=== PATIENT | male | born 1990 | race Hispanic/Latino ===

== ENCOUNTER 2019-04-20 12:12 | Inpatient (IN) | payer OTHER ==
[2019-04-20] MEDS ORDERED: ONDANSETRON 4 MG/2 ML VIAL ONE ×4 (12:20→14:38)
[2019-04-20] MEDS ORDERED: HYDROMORPHONE HCL 1 MG/ML INJ ONE (12:20)
[2019-04-20 12:30] LABS: Absolute Lymphocytes (CBC) 2.6 K/uL (0.7-4.9); Basophils % 0.5 % (0-1.3); Hematocrit 46.5 % (39.6-49.0); Lymphocytes % 26.5 % (15.3-44.8); MPV 9.1 fL (7.6-11.3); RBC Red Blood Cell Count 5.23 M/uL (4.33-5.43)
[2019-04-20] MEDS ORDERED: BUPIVACAINE 0.5% PF 10 ML VIAL ONE (12:33)
--- NOTE | 2019-04-20 12:35 | RAD REPORT ---
EXAM DESCRIPTION: RAD - Hand Left 2 View - 04/20/2019 12:26 pm CLINICAL HISTORY: Pain;Deformity COMPARISON: No comparisons FINDINGS: Examination is limited by positioning of the fingers which are in a flexed position. Soft tissue injuries are seen involving the distal aspect of the second and third fingers. No definitive f racture or foreign body seen within the limitations detailed.
--- NOTE | 2019-04-20 12:36 | RAD REPORT ---
EXAM DESCRIPTION: RAD - Chest Single View - 04/20/2019 12:28 pm CLINICAL HISTORY: pre op Chest pain. COMPARISON: No comparisons FINDINGS: Portable technique limits examination quality. The lungs are grossly clear. The heart is normal in size. No displaced fractures.Small cervical hardw are plate. IMPRESSION: No acute intrathoracic process suspected.
[2019-04-20] MEDS ORDERED: CEFAZOLIN/SWI 1gm 1 GM/10 ML SYR ONE (12:44)
[2019-04-20] MEDS ORDERED: TETANUS & DIPHTHERIA TOX,ADULT 0.5 ML VIAL ONE (12:44)
--- NOTE | 2019-04-20 13:01 | ER ---
Nurse's Notes [facility] Name: Tommy Chanel Age: 29 yrs Sex: Male : 1990 Arrival Date: 04/20/2019 Time: 12:16 Bed 3 Private MD: Diagnosis: Crushing injury of left hand;Laceration without foreign body of finger with damage to nail Presentation: 04/20 12:10 Presenting complaint: Patient states: At work, had work gloves on, putting a plate onto jl7 a roller, the plate caught the glove and the roller pulled the plate and gloved hand causing a crush injury to the second and third digits of the left hand. Transition of care: patient was not received from another setting of care. Onset of symptoms was April 20, 2019. Risk Assessment: Do you want to hurt yourself or someone else? Patient reports no desire to harm self or others. Initial Sepsis Screen: Does the patient meet any 2 criteria? No. Patient's initial sepsis screen is negative. Does the patient have a suspected source of infection? No. Patient's initial sepsis screen is negative. Care prior to arrival: None. 12:10 Method Of Arrival: Ambulatory jl7 12:10 Acuity: GEORGINA 2 jl7 13:02 Mechanism of Injury: Crush injury from industrial equipment, that had unknown weight. jl7 Extrication was not required. Patient was trapped for unknown amount of time. Trauma event details: Injury occurred in the [facility], Injury occurred: in an industrial place of business Injury occurred: April 20, 2019 Injury occurred at: 11:47. Triage Assessment: 12:10 General: Appears in no apparent distress. uncomfortable, Behavior is cooperative, jl7 anxious. Pain: Complains of pain in left middle finger and left index finger Pain currently is 10 out of 10 on a pain scale. Neuro: Level of Consciousness is awake, alert, obeys commands, Oriented to person, place, time, situation. Cardiovascular: Patient's skin is warm and dry. Respiratory: Airway is patent Respiratory effort is even, unlabored, Respiratory pattern is symmetrical, tachypnea. Derm: Skin is pink, warm \T\ dry. Trauma Activation: Alert Physician: ED Physician; Name: ELLIS Carrasco; Notified At: 12:10; Arrived At: 12:10 Physician: General Surgeon; Name: ; Notified At: 12:10; Arrived At: Physician: Radiology; Name: Misbah; Notified At: 12:10; Arrived At: 12:11 Physician: Respiratory; Name: ; Notified At: 12:10; Arrived At: Physician: Lab; Name: ; Notified At: 12:10; Arrived At: Historical: - Allergies: 12:10 No Known Allergies; jl7 - Home Meds: 12:10 None [Active]; jl7 - PMHx: 12:10 None; jl7 - PSHx: 12:10 metal rods and plate in spine and right leg; jl7 - Immunization history:: Adult Immunizations up to date. - Coronavirus screen:: The patient has NOT traveled to [place] in the past 14 days. Proceed with normal triage process as indicated. - Immunization history: Last tetanus immunization: < 5 years ago. - Social history:: Smoking status: Patient reports the use of cigarette tobacco products, smokes one-half pack cigarettes per day. - Ebola Screening: : No symptoms or risks identified at this time. Screenin:15 Abuse screen: Denies threats or abuse. Denies injuries from another. Tuberculosis jl7 screening: No symptoms or risk factors identified. 13:08 Nutritional screening: No deficits noted. Fall Risk None identified. jl7 Primary Survey: 12:10 NO uncontrolled hemorrhage observed. A: The patient is alert. Airway: patent. jl7 Breathing/Chest: Respiratory pattern: regular, Respiratory effort: spontaneous, unlabored, Chest inspection: symmetrical rise and fall of the chest. Circulation: Pulses: palpable right radial artery and left radial artery. Skin color: pink, Skin temperature: warm. Disability Alert. Exposure/Environment: All clothing and personal items were removed. Forensic evidence collection is not deemed to be indicated at this time. Items placed in patient belonging bag. 12:30 Reassessment Airway Airway Patent Breathing/Chest Respiratory pattern Regular jl7 Respiratory effort Spontaneous Unlabored Chest inspection Symmetrical Circulation Color Brandon Temperature Warm Disability Alert. Assessment: 12:10 General: Appears in no apparent distress. uncomfortable, Behavior is cooperative, jl7 anxious, See triage assessment. 13:00 Reassessment: Pts belongings including wallet, phone, clothes and boots sent with pt's jl7 [id number], Jose. 13:03 Reassessment: Pt to surgery via stretcher, family with pt. jl7 Vital Signs: 12:15 BP 137 / 107; Pulse 87; Resp 21; Temp 98.6; Pulse Ox 97% ; Weight 106.59 kg; Pain 10/10;jl7 12:45 BP 144 / 83; Pulse 82; Resp 17 S; Pulse Ox 96% on R/A; jl7 Jono Coma Score: 12:15 Eye Response: spontaneous(4). Verbal Response: oriented(5). Motor Response: obeys jl7 commands(6). Total: 15. 12:45 Eye Response: spontaneous(4). Verbal Response: oriented(5). Motor Response: obeys jl7 commands(6). Total: 15. Trauma Score (Adult): 12:15 Eye Response: spontaneous(1); Verbal Response: oriented(1); Motor Response: obeys jl7 commands(2); Systolic BP: > 89 mm Hg(4); Respiratory Rate: 10 to 29 per min(4); [place] Score: 15; Trauma Score: 12 ED Course: 12:10 Inserted saline lock: 20 gauge in right hand, using aseptic technique. ,using aseptic jl7 technique. KETTY Ronquillo Blood collected. 12:15 Oxygen administration via nasal cannula \T\ 2L/min. Thermoregulation: warm blanket given jl7 to patient. 12:15 Patient has correct armband on for positive identification. Placed in gown. Bed in low jl7 position. Call light in reach. 12:16 Patient arrived in ED. hb 12:16 Parish Hines PA is PHCP. jr8 12:16 Len Vargas MD is Attending Physician. jr8 12:26 X-ray completed. Portable x-ray completed in exam room. Patient tolerated procedure mh1 well. 12:32 XRAY Chest (1 view) In Process Unspecified. EDMS 12:33 Hand Left 2 View In Process Unspecified. EDMS 12:36 Delia Messer RN is Primary Nurse. jl7 12:38 Triage completed. jl7 12:40 Lab(s) recollected, by me, sent to lab. em1 12:45 Arm band placed on right wrist. jl7 12:59 Ramon Dey MD is Hospitalizing Provider. jr8 13:08 No provider procedures requiring assistance completed. Patient admitted, IV remains in jl7 place. intact, No redness/swelling at site. Administered Medications: 12:20 Drug: Dilaudid 1 mg Route: IVP; Site: right hand; jl7 12:30 Follow up: Response: Pain is unchanged, physician notified jl7 12:34 Drug: Zofran 4 mg Route: IVP; Site: right hand; jl7 12:40 Follow up: Response: No adverse reaction jl7 12:40 Drug: Marcaine (0.5 %) 1 application {Note: administered by ELLIS Carrasco.} Volume: jl7 10 ml; Route: Infiltration; 13:13 Follow up: Response: No adverse reaction jl7 12:45 Drug: Ancef 1 grams Route: IVPB; Site: right hand; jl7 12:48 Follow up: Response: No adverse reaction; IV Status: Completed infusion jl7 13:10 Not Given (pt tetanus is up to date): Tetanus-Diphtheria Toxoid Adult 0.5 ml IM once jl7 Intake: 13:00 PO: 0ml; IV: 0ml; Tubes: 0ml (); Total: 0ml. jl7 Output: 13:00 Urine: 0ml; Gastric: 0ml; Stool: 0; EBL: 0ml; Drainage: 0ml; Other: 0; Total: 0ml. jl7 Outcome: 13:00 Decision to Hospitalize by Provider. jr8 13:08 Admitted to OR accompanied by nurse, family with patient, via stretcher, with chart. jl7 13:08 Condition: stable 13:08 Patient's length of stay was not longer than 2 hours. 13:15 Patient left the ED. jl7 Signatures: Dispatcher [employer] EDMS Amber Cronin 1 Wesley Joel em1 Parish Hines PA PA jr8 Nikki Krause, RN RN Delia Faria RN RN jl7 Corrections: (The following items were deleted from the chart) 13:12 12:36 Dilaudid 1 mg IVP in right hand jl7 jl7 13:12 12:40 Response: Pain is unchanged, physician notified jl7 jl7
--- NOTE | 2019-04-20 13:02 | EDPHYS ---
Physician Documentation [facility] Name: Tommy Chanel Age: 29 yrs Sex: Male : 1990 Arrival Date: 04/20/2019 Time: 12:16 Bed 3 Private MD: ED Physician Len Vargas HPI: 04/20 12:44 This 29 yrs old Male presents to ER via Ambulatory with complaints of crush jr8 injury. 12:44 The patient or guardian reports decreased range of motion, injury, a laceration, jr8 irregular, complex, pain, swelling, tenderness. The complaints affect the left hand diffusely. Context: The problem was sustained at work, resulted from a crush injury, by industrial equipment. Onset: The symptoms/episode began/occurred acutely, today. Modifying factors: The symptoms are alleviated by nothing, the symptoms are aggravated by movement. Associated signs and symptoms: Pertinent positives: decreased sensation distally, numbness distally, tingling distally. Severity of symptoms: At their worst the symptoms were severe. The patient has not experienced similar symptoms in the past. The patient has not recently seen a physician. Stated that he got his hand caught in a industrial roller causing it to roll his hand through his wrist into machine . Historical: - Allergies: 12:10 No Known Allergies; jl7 - Home Meds: 12:10 None [Active]; jl7 - PMHx: 12:10 None; jl7 - PSHx: 12:10 metal rods and plate in spine and right leg; jl7 - Immunization history:: Adult Immunizations up to date. - Coronavirus screen:: The patient has NOT traveled to [place] in the past 14 days. Proceed with normal triage process as indicated. - Immunization history: Last tetanus immunization: < 5 years ago. - Social history:: Smoking status: Patient reports the use of cigarette tobacco products, smokes one-half pack cigarettes per day. - Ebola Screening: : No symptoms or risks identified at this time. ROS: 12:44 Eyes: Negative for injury, pain, redness, and discharge, ENT: Negative for injury, jr8 pain, and discharge, Neck: Negative for injury, pain, and swelling, Cardiovascular: Negative for chest pain, palpitations, and edema, Respiratory: Negative for shortness of breath, cough, wheezing, and pleuritic chest pain, Abdomen/GI: Negative for abdominal pain, nausea, vomiting, diarrhea, and constipation, Back: Negative for injury and pain, Neuro: Negative for headache, weakness, numbness, tingling, and seizure. 12:44 MS/extremity: Positive for injury or acute deformity, decreased range of motion, laceration, pain, paresthesias, swelling, tenderness, tingling, of the left hand. Exam: 12:44 Eyes: Pupils equal round and reactive to light, extra-ocular motions intact. Lids and jr8 lashes normal. Conjunctiva and sclera are non-icteric and not injected. Cornea within normal limits. Periorbital areas with no swelling, redness, or edema. ENT: Nares patent. No nasal discharge, no septal abnormalities noted. Tympanic membranes are normal and external auditory canals are clear. Oropharynx with no redness, swelling, or masses, exudates, or evidence of obstruction, uvula midline. Mucous membranes moist. Neck: Trachea midline, no thyromegaly or masses palpated, and no cervical lymphadenopathy. Supple, full range of motion without nuchal rigidity, or vertebral point tenderness. No Meningismus. Cardiovascular: Regular rate and rhythm with a normal S1 and S2. No gallops, murmurs, or rubs. Normal PMI, no JVD. No pulse deficits. Respiratory: Lungs have equal breath sounds bilaterally, clear to auscultation and percussion. No rales, rhonchi or wheezes noted. No increased work of breathing, no retractions or nasal flaring. Abdomen/GI: Soft, non-tender, with normal bowel sounds. No distension or tympany. No guarding or rebound. No evidence of tenderness throughout. Back: No spinal tenderness. No costovertebral tenderness. Full range of motion. Skin: Warm, dry with normal turgor. Normal color with no rashes, no lesions, and no evidence of cellulitis. Neuro: Awake and alert, GCS 15, oriented to person, place, time, and situation. Cranial nerves II-XII grossly intact. Motor strength 5/5 in all extremities. Sensory grossly intact. Cerebellar exam normal. Normal gait. 12:44 Musculoskeletal/extremity: Extremities: grossly normal except: noted in the left hand: Patient has pain with irregular laceration and extensive soft tissue injury to 2nd digit extending from distal portion to medial phalanx. Patient also has moderate pain with swelling and subungual hematoma formation of the distal third digit. Very limited ROM to third digit. Unable to move 2nd digit. Normal ROM to thumb. Moderate ROM to 4th and 5th digits. Marked decrease in sensation to 2nd and 3rd digits. Normal sensation to 1st and 5th digits. Decreased sensation to distal 4th digit. Swelling of 2nd and 3rd digits present, Pulses: noted to be 2+ in the right radial artery and left radial artery, Perfusion: the extremity is cool, pale, noted to have sluggish capillary refill, distal 2nd-4th digits , Compartment Syndrome exam of affected extremity: the left hand distal second-fourth digits severe pain, numbness, tingling, sensation decreased, pale extremity, Remainder of extremities unaffected and within normal limits . Vital Signs: 12:15 BP 137 / 107; Pulse 87; Resp 21; Temp 98.6; Pulse Ox 97% ; Weight 106.59 kg; Pain 10/10;jl7 12:45 BP 144 / 83; Pulse 82; Resp 17 S; Pulse Ox 96% on R/A; jl7 Jono Coma Score: 12:15 Eye Response: spontaneous(4). Verbal Response: oriented(5). Motor Response: obeys jl7 commands(6). Total: 15. 12:45 Eye Response: spontaneous(4). Verbal Response: oriented(5). Motor Response: obeys jl7 commands(6). Total: 15. Trauma Score (Adult): 12:15 Eye Response: spontaneous(1); Verbal Response: oriented(1); Motor Response: obeys jl7 commands(2); Systolic BP: > 89 mm Hg(4); Respiratory Rate: 10 to 29 per min(4); [place] Score: 15; Trauma Score: 12 Procedures: 12:37 Nerve block: (digital) of dorsal aspect of proximal phalanx of left index finger jr8 Medication: Marcaine 0.5%, Amount: 4 mls were injected, Effect: the patient's symptoms are improved, moderately, Set up for procedure. Performed by Parish CORRAL Patient tolerated well. MDM: 12:16 Patient medically screened. jr8 12:43 Data reviewed: vital signs, nurses notes, lab test result(s), radiologic studies, plain jr8 films. Data interpreted: Pulse oximetry: on room air is 100 %. Interpretation: normal. Counseling: I had a detailed discussion with the patient and/or guardian regarding: the historical points, exam findings, and any diagnostic results supporting the discharge/admit diagnosis, lab results, radiology results, the need for further work-up and treatment in the hospital. ED course: Dr. Law consulted and will take patient to surgery immediately . 04/20 12:17 Order name: Basic Metabolic Panel; Complete Time: 13:15 jr8 04/20 12:17 Order name: CBC with Diff; Complete Time: 13:00 jr8 04/20 12:17 Order name: XRAY Hand LEFT 3 View jr8 04/20 12:21 Order name: XRAY Chest (1 view) jr8 04/20 12:33 Order name: Hand Left 2 View EDMS 04/20 12:17 Order name: Labs collected and sent; Complete Time: 12:18 jr8 Administered Medications: 12:20 Drug: Dilaudid 1 mg Route: IVP; Site: right hand; jl7 12:30 Follow up: Response: Pain is unchanged, physician notified jl7 12:34 Drug: Zofran 4 mg Route: IVP; Site: right hand; jl7 12:40 Follow up: Response: No adverse reaction jl7 12:40 Drug: Marcaine (0.5 %) 1 application {Note: administered by PA. Danilo} Volume: jl7 10 ml; Route: Infiltration; 13:13 Follow up: Response: No adverse reaction jl7 12:45 Drug: Ancef 1 grams Route: IVPB; Site: right hand; jl7 12:48 Follow up: Response: No adverse reaction; IV Status: Completed infusion jl7 13:10 Not Given (pt tetanus is up to date): Tetanus-Diphtheria Toxoid Adult 0.5 ml IM once jl7 Disposition: 14:18 Co-signature as Attending Physician, Len Vargas MD I agree with the assessment and kdr plan of care. Disposition: 04/20/19 13:00 Hospitalization ordered by Ramon Dey for Inpatient Admission. Preliminary diagnosis are Crushing injury of left hand, Laceration without foreign body of finger with damage to nail. - Bed requested for Telemetry/MedSurg (Inpatient). - Status is Inpatient Admission. jl7 - Condition is Fair. - Problem is new. - Symptoms have improved. Signatures: Dispatcher [employer] EDMS Len Vargas MD MD kdr Parish Hines PA PA jr8 Delia Messer RN RN jl7 Corrections: (The following items were deleted from the chart) 13:15 13:00 Hospitalization Ordered by Ramon Dey MD for Inpatient Admission. Preliminary jl7 diagnosis is Crushing injury of left hand; Laceration without foreign body of finger with damage to nail. Bed requested for Telemetry/MedSurg (Inpatient). Status is Inpatient Admission. Condition is Fair. Problem is new. Symptoms have improved. jr8
[2019-04-20 13:05] LABS: BUN Blood Urea Nitrogen 15 mg/dL (7-18); Bicarbonate 23 mmol/L (21-32); Glucose Level 98 mg/dL (74-106); Potassium 4.2 mmol/L (3.5-5.1); Sodium Level 137 mmol/L (136-145)
[2019-04-20] MEDS ORDERED: Ringers Lactate 1,000 ML IV ONE (13:13)
[2019-04-20] MEDS ORDERED: MEPERIDINE HCL 25 MG/ML SYR ONE (13:19)
[2019-04-20] MEDS ORDERED: propofoL 200 MG/20 ML VIAL IV ONE ×2 (13:30→14:22)
[2019-04-20] MEDS ORDERED: FENTANYL CITR 100 MCG/2 ML ONE ×3 (13:31→14:39)
[2019-04-20] MEDS ORDERED: LIDOCAINE 1% MPF 2 ML AMPULE ONE (13:35)
--- NOTE | 2019-04-20 13:45 | P.HP ---
Certification for Inpatient Patient admitted to: Observation With expected LOS: <2 Midnights Patient will require the following post-hospital care: None Practitioner: I am a practitioner with admitting privileges, knowledge of patient current condition, hospital course, and medical plan of care. Services: Services provided to patient in accordance with Admission requirements found in Title 42 Section 412.3 of the Code of Federal Regulations Patient History Date of Service: 04/20/19 Reason for admission: Crush Injury to Hand History of Present Illness: 29 yrs old Male presents with complaints of crush injury left hand . He has decreased range of motion, injury, a laceration, irregular, complex, pain , swelling, tenderness. The complaints affect the left hand was sustained at work, resulted from a crush injury by industrial equipment.Stated that he got his hand caught in a industrial roller causing it to roll his hand through his wrist into machine today . He complaints of decreased sensation distally, numbness distally, tingling distally. Allergies No Known Allergies Allergy (Verified 04/20/19 15:01) - Past Medical/Surgical History Past Medical History: Reviewed- Non-Contributory Past Surgical History: Reviewed- Non-Contributory - Family History Family History: Reviewed- Non-Contributory Review of Systems 10-point ROS is otherwise unremarkable Physical Examination - Vital Signs Temperature: 97.6 F Blood Pressure: 93/63 Pulse: 86 Respirations: 18 - Physical Exam General: Alert, In no apparent distress HEENT: Atraumatic, Normocephalic Neck: Supple Respiratory: Clear to auscultation bilaterally, Normal air movement Cardiovascular: No edema, Regular rate/rhythm Capillary refill: <2 Seconds Gastrointestinal: Soft and benign, W/out hepatosplenomegaly Musculoskeletal: Other (Left Hand Dressing intact , moves the fingers ) Integumentary: No rashes, No breakdown Neurological: Normal speech, Normal strength at 5/5 x4 extr Lymphatics: No axilla or inguinal lymphadenopathy External genitalia: Deferred Rectal: Deferred - Studies Laboratory Data (last 24 hrs) 04/20/19 12:40: Sodium 137, Potassium 4.2, BUN 15, Creatinine 0.94, Glucose 98 04/20/19 12:10: WBC 10.0, Hgb 15.4, Hct 46.5, Plt Count 316 Assessment and Plan - Problems (Diagnosis) (1) Crush injury of hand Current Visit: Yes Status: Acute Plan: Crush Inhury to hand Status post irrigation Plan Pain control Appreciate help from hand surgeon monitor closely Antibiotics GI/DVT prophylaxis Discharge Plan: Home Plan to discharge in: 48 Hours - Advance Directives Does patient have a Living Will: No Does patient have a Durable POA for Healthcare: No Time Spent Managing Pts Care (In Minutes): 45
[2019-04-20] MEDS ORDERED: MIDAZOLAM HCL 2 MG/2 ML INJ ONE (13:52)
[2019-04-20] MEDS ORDERED: dexAMETHasone 10 MG/ML VIAL ONE ×2 (13:52→14:37)
[2019-04-20] MEDS ORDERED: ROPLVACAINE HCL 20 ML ONE (13:52)
[2019-04-20] MEDS ORDERED: KETOROLAC 30 MG/ML INJ ONE (14:37)
[2019-04-20] MEDS: MEPERIDINE HCL 25 MG/ML SYR ONE ×2 (15:00→15:15)
[2019-04-20] MEDS ORDERED: MEPERIDINE HCL 50 MG/ML IM PRN (15:25)
[2019-04-20] MEDS: SMZ./TMP. 800/160 MG TABLET PO SCH ×2 (17:54→20:28)
[2019-04-20 18:29] VITALS: BMI 35.4
[2019-04-20] MEDS: CODEINE 30MG/APAP 300MG TAB PO PRN (21:06)
[2019-04-20] MEDS: MEPERIDINE HCL 50 MG/ML IV PRN (23:34)
--- NOTE | 2019-04-20 23:42 | OP ---
Surgeon: Jeremiah Law MD Preoperative Diagnosis: Crush wound to the left index and middle fingers ____. Postoperative Diagnosis: Crush wound to the left index and middle fingers . Procedure Performed: Debridement of skin and subcutaneous tissue, removal of foreign body, simple closure 2 cm. Anesthesia: General. Procedure In Detail: After satisfactory induction of general anesthesia, left hand was prepped with Betadine scrub, Betadine paint, dry sterile drapes applied in usual manner. Hand was placed on the [place] table. The bleeding from the wounds was excellent. The wound edges were debrided with tenotomy scissors and forceps. Patient had burst injury to the volar aspect of the middle finger at the DIP joint approximately 1.5 x 0.5 cm. The skin edges were debrided as needed and left open. The index finger had more severe injury. The nail plate had been removed by the trauma. The nail plate was removed down the middle finger using a periosteal elevator. The burst injury of the index finger was in the midline extending from the tip to the proximal level of the DIP joint. This was scrubbed with Betadine scrub brush and then the wounds were jet lavaged, irrigated with 2 L of dilute Betadine solution. Electrocautery was used on the bleeders. The vascular area was excellent, there was no evidence of compartment syndrome. Both fingers were soft, thenar and hypothenar areas were soft, palm was soft, forearm as well and the digits, and had excellent bleeding. Note, reasonably he has a significant crush injury other than the burst injury. At that time, the dressings was applied consisted of Xeroform, 2-inch Jose, and Kerlix. The patient tolerated the procedure well and returned to the Recovery. YE/MISTY Voice ID: [id number] Report ID: [id number]
[2019-04-21] MEDS: MEPERIDINE HCL 50 MG/ML IV PRN (05:34)
[2019-04-21] MEDS: CODEINE 30MG/APAP 300MG TAB PO PRN (08:12)
[2019-04-21] MEDS: SMZ./TMP. 800/160 MG TABLET PO SCH (08:13)
[2019-04-21] MEDS ORDERED: KETOROLAC 30 MG/ML INJ IM ONE (09:36)
--- NOTE | 2019-04-21 09:55 | P.DS ---
Admission Date: 04/20/19 Discharge Date: 04/21/19 Disposition: ROUTINE DISCHARGE Discharge Condition: GOOD Reason for Admission: Crush Injury to Hand - Problems (1) Crush injury of hand Status: Acute Brief History of Present Illness: 29 yrs old Male presents with complaints of crush injury left hand . He has decreased range of motion, injury, a laceration, irregular, complex, pain , swelling, tenderness. The complaints affect the left hand was sustained at work, resulted from a crush injury by industrial equipment.Stated that he got his hand caught in a industrial roller causing it to roll his hand through his wrist into machine today . He complaints of decreased sensation distally, numbness distally, tingling distally. Hospital Course: He was admitted and pain was controlled well. Hand surgeon did irrigation and cleaning. Hand surgery recommended outpatient follow up she has been discharged home today in a stable condition with advice to follow up with PCP in 1 week and also with hand surgery on Wednesday Vital Signs/Physical Exam: Temp Pulse Resp BP Pulse Ox 97.8 F 58 20 117/54 L 96 04/21/19 08:00 04/21/19 08:00 04/21/19 08:12 04/21/19 08:00 04/21/19 08:12 General: Alert, In no apparent distress HEENT: Atraumatic, Normocephalic Neck: Supple Respiratory: Clear to auscultation bilaterally, Normal air movement Cardiovascular: Regular rate/rhythm Gastrointestinal: Soft and benign Musculoskeletal: No clubbing, Other (Dressing left hand intact ) Integumentary: Tenderness/swelling Neurological: Normal speech, Normal strength at 5/5 x4 extr Lymphatics: No axilla or inguinal lymphadenopathy Laboratory Data at Discharge: WBC 10.0 K/uL (4.3-10.9) 04/20/19 12:10 Hgb 15.4 g/dL (13.6-17.9) 04/20/19 12:10 Hct 46.5 % (39.6-49.0) 04/20/19 12:10 Plt Count 316 K/uL (152-406) 04/20/19 12:10 Sodium 137 mmol/L (136-145) 04/20/19 12:40 Potassium 4.2 mmol/L (3.5-5.1) 04/20/19 12:40 BUN 15 mg/dL (7-18) 04/20/19 12:40 Creatinine 0.94 mg/dL (0.55-1.3) 04/20/19 12:40 Glucose 98 mg/dL (74-106) 04/20/19 12:40 Home Medications: Codeine/APAP [Tylenol W/Codeine #3 tab] 1 tab PO Q4HP PRN #30 tab 04/21/19 Ketorolac [Toradol] 10 mg PO Q6H PRN #10 tab 04/21/19 Sulfamethoxazole/Trimethoprim [Bactrim Ds Tablet] 1 each PO Q12HR 6AM AND 6PM # 20 tablet 04/21/19 New Medications: Codeine/APAP [Tylenol W/Codeine #3 tab] 1 tab PO Q4HP PRN #30 tab PRN Reason: Pain Ketorolac [Toradol] 10 mg PO Q6H PRN #10 tab PRN Reason: Pain Scale 8-10 (Severe) Sulfamethoxazole/Trimethoprim [Bactrim Ds Tablet] 1 each PO Q12HR 6AM AND 6PM # 20 tablet Diet: Regular Followup: Jeremiah Law MD [ACTIVE - CAN ADMIT] - (follow up wednesday at 3pm) Time spent managing pt's care (in minutes): 38
[2019-04-21 12:48] VITALS: O2SAT 96
[2019-04-21 13:28] VITALS: BP 110/53; TEMP 99
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
--- NOTE | 2019-04-24 14:49 | HP ---
Date of Admission: 04/20/2019 History Of Present Illness: The patient is a 29-year-old male, right- hand dominant, who crushed his left index and middle fingers today at work at 11 :47 a.m. according to the patient. Tetanus toxoid was given in 2016. Past Medical History: No medical problems. Previous Surgery: pins of his the right leg . Social History: Smokes 1/2 pack a day. Does not drink. Allergies: NO ALLERGIES. Medications: He is on a muscle relaxant. Physical Examination: On exam, he has a crush injury to the index and middle of the left hand. The injury on the middle finger at the volar surface over the DIP joint about 2 x 1.5 x 0.5 cm and the index finger has a laceration but the skin flayed open. The nail plate is missing. The injury extends on the volar surface to theDIP. There is also discoloration of the skin as well with a black discoloration. He is 6 feet 8 inches, 320 pounds. Assessment: Crush injury. Plan: Debridement . YE/MISTY Voice ID: [id number]
== END 2019-04-21 11:57 | disposition home or self-care (01) | DRG 906 ==
LOC: ER 12:12 → OR 13:11 → 4TH 15:08
PROVIDERS: ADMIT Family Medicine; ATTEND Family Medicine
PROC: 0JBK0ZZ Excision of Left Hand Subcutaneous Tissue and Fascia, Open Approach (ICD-10-PCS; 2019-04-20)
PROC: 0HBQXZZ Excision of Finger Nail, External Approach (ICD-10-PCS; principal; 2019-04-20 13:00)
DX: S67.193A Crushing injury of left middle finger, initial encounter (principal); S67.191A Crushing injury of left index finger, initial encounter; S67.22XA Crushing injury of left hand, initial encounter; F17.210 Nicotine dependence, cigarettes, uncomplicated; W31.9XXA Contact with unspecified machinery, initial encounter; Y92.89 Other specified places as the place of occurrence of the external cause; Y99.0 Civilian activity done for income or pay
CPT/HCPCS: 36415; 64450; 71045; 80048; 85025; 88304; 88311; 88312; 90714; 96374; 96375; 99285; J0690; J1100; J1170; J2001; J2175; J2250; J2405; J2704; J2795; J3010; J7120

== ENCOUNTER 2019-05-02 09:14 | Day surgery (SDC) | payer OTHER ==
[2019-05-02] MEDS ORDERED: MINERAL OIL, LITE 10 ML VIAL ONE (09:57)
[2019-05-02] MEDS ORDERED: MIDAZOLAM HCL 2 MG/2 ML INJ ONE (10:13)
[2019-05-02] MEDS ORDERED: propofoL 200 MG/20 ML VIAL IV ONE (10:13)
[2019-05-02] MEDS ORDERED: LIDOCAINE 1% MPF 5 ML VIAL ONE (10:14)
[2019-05-02] MEDS ORDERED: FENTANYL CITR 100 MCG/2 ML ONE ×2 (10:14→11:10)
[2019-05-02] MEDS ORDERED: Ringers Lactate 1,000 ML IV ONE (10:15)
[2019-05-02] MEDS ORDERED: CEFAZOLIN/SWI 1gm 1 GM/10 ML SYR ONE (10:15)
[2019-05-02] MEDS ORDERED: KETOROLAC 30 MG/ML INJ ONE (11:20)
[2019-05-02] MEDS ORDERED: ONDANSETRON 4 MG/2 ML VIAL ONE (11:22)
[2019-05-02] MEDS ORDERED: MEPERIDINE HCL 25 MG/ML SYR ONE (11:22)
[2019-05-02] MEDS: MEPERIDINE HCL 25 MG/ML SYR ONE ×4 (11:49→12:24)
[2019-05-02] MEDS: HYDROMORPHONE HCL 2 MG/ML inj ONE ×4 (11:49→12:04)
[2019-05-02] MEDS ORDERED: PROMETHAZINE INJ 25 MG/ML AMP ONE (11:53)
[2019-05-02] MEDS: HYDROMORPHONE HCL 1 MG/ML INJ ONE ×4 (12:09→12:30)
[2019-05-02] MEDS: MEPERIDINE HCL 50 MG/ML ONE ×2 (12:35→12:40)
[2019-05-02] MEDS: FENTANYL CITR 100 MCG/2 ML ONE ×2 (12:50→13:38)
[2019-05-02] MEDS ORDERED: CODEINE 30MG/APAP 300MG TAB ONE (13:57)
[2019-05-02 14:11] VITALS: BP 135/74; TEMP 97.5; O2SAT 98
--- NOTE | 2019-05-02 23:02 | OP ---
Surgeon: Jeremiah Law MD Preoperative Diagnosis: Open wound of the left index and left middle finger. Postoperative Diagnosis: Open wound of the left index and left middle finger. Procedure: Debridement of skin, subcutaneous tissue and bone of the left index finger, flap closure. Anesthesia: General. Procedure In Detail: After satisfactory induction of general anesthesia, left hand was prepped with Betadine scrub, Betadine paint, and dry sterile drapes applied in usual manner. The arm was elevated, exsanguinated with an Esmarch. Tourniquet was inflated 250 mmHg. A curette was used to debride the volar surface of the middle finger superficial of just some dried blood . this was not a full-thickness laceration and has healed nicely. No further therapy was needed. Attention was then turned to the index finger. Sutures removed from previous closure and the burst injury, which was over the volar surface of the finger down the middle on the volar surface, had edges debrided, then jet lavaged, irrigated with about 0.5 L of dilute Betadine solution and then the flaps were advanced from radial to ulnar, ulnar to radial, closing wound in the midline with 4-0 Prolene simple sutures, horizontal mattress, or buried mattress. The patient's wound was closed after the bone was shortened, with a bone cutter and filed. Tourniquet released. Dressed with Xeroform, 2 inch Jose. The patient tolerated the procedure well and returned to Recovery. YE/MISTY Voice ID: [id number] Report ID: [id number] ALBA
== END 2019-05-02 14:11 | disposition home or self-care (01) ==
LOC: OR 09:14
PROVIDERS: ATTEND Specialist
PROC: 0PBV0ZZ Excision of Left Finger Phalanx, Open Approach (ICD-10-PCS; 2019-05-02)
PROC: 0HXGXZZ Transfer Left Hand Skin, External Approach (ICD-10-PCS; principal; 2019-05-02 12:15)
DX: S61.201A Unspecified open wound of left index finger without damage to nail, initial encounter (principal); S61.203A Unspecified open wound of left middle finger without damage to nail, initial encounter; F17.200 Nicotine dependence, unspecified, uncomplicated
CPT/HCPCS: 88304; 14040; J2250; J2405; 88305; J0690; J1170; J2175; J2550; J2704; J3010; J7120